=== PATIENT | female | born 1990 | race Caucasian/White ===

== ENCOUNTER 2017-08-22 05:56 | Inpatient (IN) ==
[2017-08-22] MEDS ORDERED: CITRIC ACID/SODIUM CITRATE 30 ML UDCUP PO PRN (06:14)
[2017-08-22] MEDS ORDERED: ceFAZolin 2,000 MG in PREMIX 1 EACH IV PRN (06:14)
[2017-08-22] MEDS ORDERED: FAMOTIDINE 20 MG/2 ML VIAL IV PRN (06:14)
[2017-08-22] MEDS ORDERED: OXYTOCIN/LR 20 UNIT/1,000 ML BAG IV PRN (06:17)
[2017-08-22] MEDS ORDERED: CLINDAMYCIN INJ 900 MG in PREMIX 1 EACH IV PRN (06:26)
[2017-08-22] MEDS ORDERED: LACTATED RINGERS 1,000 ML IV SCH (06:30)
[2017-08-22 06:42] LABS: Basophils % 0.3 % (0.0-0.8); Eosinophils # 0.1 10*3/uL (0.0-0.87); Eosinophils % 1.1 % (0.00-10.9); Hematocrit 37.2 VOL% (35.7-47.0); Hemoglobin 12.4 GM/DL (12.0-16.0); Immature Granulocytes % 0.7 %; Immature Granulocytes Absolute 0.08 #; Lymphocytes # 2.6 10*3/uL (1.4-4.0); Lymphocytes % 21.7 % (21.3-54.2); Mean Corpuscular HGB Conc 33.3 GM/DL (32-36); Mean Corpuscular Hemoglobin 29 PG (27-34); Mean Corpuscular Volume 85.7 FL (87-102); Mean Platelet Volume 11.6 FL (9.6-12.0); Monocytes % 8.6 % (1.7-12.7); Neutrophils # 8.1 10*3/uL (1.4-7.4); Neutrophils % 67.6 % (38.7-73.9); Platelet Count 212 T/CUMM (130-400); Red Blood Count 4.34 MC/CUMM (3.8-5.5); Red Cell Distribution Width 12.6 % (9.3-17.3); White Blood Count 11.9 T/CUMM (4-12)
[2017-08-22 08:30] LABS: Apearance,Urine CLEAR (Clear); Bilirubin,Urine Negative (Negative); Blood, Urine Small mg/dL (Negative); Glucose,Urine (UA) Negative (Negative); Ketones,Urine Negative (Negative); Mucus,Urine Occasional /LPF (Occasional); Nitrite,Urine Negative (Negative); Protein,Urine Negative; RBC,Urine 6 /HPF (0-4); Urine Color Yellow (Yellow); Urine Urobilinogen < 2.0 EU/DL (0.2-1.0); WBC,Urine 1 /HPF (0-6)
[2017-08-22] MEDS ORDERED: IBUPROFEN 800 MG TABLET PO PRN (08:40)
[2017-08-22] MEDS ORDERED: OXYTOCIN/LR 20 UNIT/1,000 ML BAG IV ONE (08:40)
[2017-08-22] MEDS ORDERED: ACETAMINOPHEN 325 MG TABLET PO PRN (08:40)
[2017-08-22] MEDS ORDERED: ONDANSETRON 4 MG/2 ML VIAL IV PRN (08:40)
[2017-08-22] MEDS ORDERED: MORPHINE 10 MG/10 ML VIAL ONE (08:52)
[2017-08-22] MEDS ORDERED: fentaNYL 100 MCG/2 ML VIAL ONE (08:52)
[2017-08-22] MEDS ORDERED: MIDAZOLAM 2 MG/2 ML VIAL ONE (08:52)
[2017-08-22] MEDS ORDERED: OXYTOCIN 10 UNIT/ML VIAL ONE (08:53)
[2017-08-22] MEDS ORDERED: RHO(D) IMMUNE GLOBULIN 300 MCG SYRINGE IM ONE (09:30)
[2017-08-22] MEDS ORDERED: hydrOXYzine HCL 25 MG/1 ML VIAL IM PRN (10:38)
[2017-08-22] MEDS ORDERED: diphenhydrAMINE 50 MG/1 ML VIAL IV PRN (10:38)
[2017-08-22] MEDS ORDERED: HYDROmorphone 2 MG/1 ML VIAL IV PRN (10:38)
[2017-08-22] MEDS ORDERED: SODIUM CHLORIDE 0.9% 1,000 ML IV SCH (11:00)
[2017-08-22] MEDS: oxyCODONE/ACETAMINOPHEN 5-325 MG TABLET PO PRN ×2 (12:12→22:03)
[2017-08-22] MEDS ORDERED: LIDOCAINE MPF 2% /EPI 20 ML VIAL ONE (12:15)
[2017-08-22] MEDS ORDERED: KETOROLAC 30 MG/1 ML VIAL IV PRN (12:43)
[2017-08-22] MEDS: CLINDAMYCIN INJ 900 MG in PREMIX 1 EACH IV SCH ×2 (16:01→23:20)
[2017-08-22 16:40] LABS: Basophils % 0.3 % (0.0-0.8); Eosinophils % 0.3 % (0.00-10.9); Hematocrit 32.2 VOL% (35.7-47.0); Hemoglobin 10.7 GM/DL (12.0-16.0); Immature Granulocytes % 0.4 %; Immature Granulocytes Absolute 0.05 #; Lymphocytes # 2.2 10*3/uL (1.4-4.0); Lymphocytes % 17.8 % (21.3-54.2); Mean Corpuscular HGB Conc 33.2 GM/DL (32-36); Mean Corpuscular Hemoglobin 28 PG (27-34); Mean Corpuscular Volume 84.1 FL (87-102); Mean Platelet Volume 11.5 FL (9.6-12.0); Monocytes % 8.3 % (1.7-12.7); Neutrophils # 8.9 10*3/uL (1.4-7.4); Neutrophils % 72.9 % (38.7-73.9); Platelet Count 151 T/CUMM (130-400); Red Blood Count 3.83 MC/CUMM (3.8-5.5); Red Cell Distribution Width 12.6 % (9.3-17.3); White Blood Count 12.2 T/CUMM (4-12)
[2017-08-22] MEDS: DOCUSATE SODIUM 100 MG CAPSULE PO SCH (20:34)
[2017-08-22] MEDS: LACTATED RINGERS 1,000 ML IV SCH (20:37)
[2017-08-23] MEDS: LACTATED RINGERS 1,000 ML IV SCH (04:30)
[2017-08-23 06:15] LABS: Basophils % 0.2 % (0.0-0.8); Eosinophils # 0.1 10*3/uL (0.0-0.87); Eosinophils % 0.3 % (0.00-10.9); Hematocrit 32.3 VOL% (35.7-47.0); Hemoglobin 10.7 GM/DL (12.0-16.0); Immature Granulocytes % 0.8 %; Immature Granulocytes Absolute 0.12 #; Lymphocytes # 1.4 10*3/uL (1.4-4.0); Lymphocytes % 9.6 % (21.3-54.2); Mean Corpuscular HGB Conc 33.1 GM/DL (32-36); Mean Corpuscular Hemoglobin 29 PG (27-34); Mean Corpuscular Volume 85.9 FL (87-102); Mean Platelet Volume 11.1 FL (9.6-12.0); Monocytes # 1.6 10*3/uL (0.11-0.8); Monocytes % 10.7 % (1.7-12.7); Neutrophils # 11.6 10*3/uL (1.4-7.4); Neutrophils % 78.4 % (38.7-73.9); Platelet Count 155 T/CUMM (130-400); Red Blood Count 3.76 MC/CUMM (3.8-5.5); Red Cell Distribution Width 12.7 % (9.3-17.3); White Blood Count 14.8 T/CUMM (4-12)
[2017-08-23] MEDS: oxyCODONE/ACETAMINOPHEN 5-325 MG TABLET PO PRN ×3 (08:38→19:27)
[2017-08-23] MEDS: MULTIVITAMIN (PRENATAL) TABLET PO SCH (08:40)
[2017-08-23] MEDS: DOCUSATE SODIUM 100 MG CAPSULE PO SCH ×2 (08:40→21:19)
[2017-08-23] MEDS: MAGNESIUM HYDROXIDE SUSP 30 ML UDCUP PO PRN ×2 (13:20→21:19)
[2017-08-23] MEDS: SIMETHICONE CHEW 80 MG TABLET PO PRN ×2 (13:20→21:19)
[2017-08-24] MEDS: oxyCODONE/ACETAMINOPHEN 5-325 MG TABLET PO PRN ×2 (04:14→09:39)
[2017-08-24 07:47] VITALS: BP 107/59
[2017-08-24] MEDS: DOCUSATE SODIUM 100 MG CAPSULE PO SCH (08:38)
[2017-08-24] MEDS: MULTIVITAMIN (PRENATAL) TABLET PO SCH (08:39)
== END 2017-08-24 11:50 | disposition home or self-care (01) | DRG 766 ==
LOC: N.LDOUT 05:56 → N.LD 06:02 → N.OB 12:30
PROVIDERS: ADMIT Obstetrics & Gynecology; ATTEND Obstetrics & Gynecology
PROC: LDCSECT (ICD-10-PCS; 2017-08-22 07:00)